=== PATIENT | female | born 1990 | race Caucasian/White ===

== ENCOUNTER → 2017-07-01 14:13 | Outpatient (CLI) | payer BC, SELFPAY ==
[2017-07-01 16:13] LABS: Glucose Challenge Gest 1H 50g 103 mg/dL (70-140)
[2017-07-01 16:17] LABS: Hematocrit 33.9 % (37-47); Hemoglobin 11.2 g/dl (12.0-15.0); Mean Corpuscular Hgb 28.8 pg (27.0-32.0); Mean Corpuscular Volume 87.1 fL (81-99); Mean Platelet Vol. 10.5 fl (6.2-12.0); Platelet Count 346 K/mm3 (150-450); RBC Distribution Width CV 13.5 % (11.6-14.6); RBC Distribution Width SD 43.2 fl (35.1-43.9); Red Blood Count 3.89 M/mm3 (4.2-5.4); White Blood Count 8.9 K/mm3 (4.4-11.0)
[2017-07-01 16:23] LABS: Scan Indicated on CBC? Y/N NO
== END ==
PROVIDERS: Visit Provider Obstetrics & Gynecology
DX: Z34.83 Encounter for supervision of other normal pregnancy, third trimester (principal)
CPT/HCPCS: 36415; 82950; 85027

== ENCOUNTER → 2017-08-16 17:02 | Outpatient (CLI) | payer BC, SELFPAY | PROVIDERS: Visit Provider Obstetrics & Gynecology | DX: Z34.93 Encounter for supervision of normal pregnancy, unspecified, third trimester (principal) | CPT/HCPCS: 87086; 87088 ==

== ENCOUNTER → 2017-08-30 16:00 | Outpatient (CLI) | payer BC, SELFPAY ==
--- NOTE | 2017-08-30 16:00 | DT_ITS ---
This patient was seen during an EMR downtime August 29, 2017 - September 05, 2017. This patient may have a combination of paper and electronic documentation or all paper documentation. All documentation is viewable within the e-chart portion of [employer] for each patient visit.
[2017-09-04 10:03] LABS: Group B Strep DNA By PCR Negative (Negative); Internal Control PASS; Probe Check PASS; Specimen Processing Control PASS
== END ==
PROVIDERS: Visit Provider Obstetrics & Gynecology
DX: Z34.90 Encounter for supervision of normal pregnancy, unspecified, unspecified trimester (principal)
CPT/HCPCS: 87081; 87653

== ENCOUNTER 2017-09-09 13:00 | Outpatient (CLI) | payer BC, SELFPAY ==
[2017-09-09 14:25] VITALS: BMI 28.4
--- NOTE | 2017-09-10 03:00 | OB.TRI.NOTE ---
History of Present Illness Date of Service: 09/09/17 Reason For Visit: R/O LABOR Date of Service: 09/09/17 History of Present Illness: presetns for contractions 4 cm in office Allergies No Known Allergies Allergy (Verified 09/09/17 10:30) - Pertinent Past Medical History Medical History: Past Medical History (Last Reviewed 09/09/17 @ 10:30 by Alexus Jane) Anxiety and depression Surgical History: Past Surgical History (Last Reviewed 09/09/17 @ 10:31 by Alexus Jane) History of wisdom tooth extraction, class II edentulism NST - FHR Rate Baby A Baseline: 140 Variability:: Moderate Accelerations:: 15 x 15 Decelerations:: None NST Reactive:: Yes FHR Category:: Category I Uterine Activity:: q3-6 Impression/Plan false labor no cervical change dc home
== END 2017-09-09 15:54 | disposition home or self-care (01) ==
LOC: WPOUT 13:27 → WP 13:27
PROVIDERS: Visit Provider Obstetrics & Gynecology
DX: O47.9 False labor, unspecified (principal); Z3A.00 Weeks of gestation of pregnancy not specified
CPT/HCPCS: 59025; 59050; 99218; G0378

== ENCOUNTER 2017-09-10 13:17 | Outpatient (CLI) | payer BC, SELFPAY ==
[2017-09-10 15:24] VITALS: BMI 29.7
[2017-09-10 16:10] LABS: ROM Internal Control Test YES-OK TO RESULT pt. (Internal QC); ROM Patient Test Negative (Negative)
--- NOTE | 2017-09-10 16:29 | NURSING ---
[id number] Dr balbuena notified rom plus negative. discharge order received
--- NOTE | 2017-09-10 18:15 | OB.TRI.NOTE ---
- Problem List (1) False labor Status: Acute History of Present Illness Date of Service: 09/10/17 Was patient seen by the physician?: No Reason For Visit: R/O ROM Date of Service: 09/10/17 History of Present Illness: co ctx and increased discharge Allergies No Known Allergies Allergy (Verified 09/09/17 10:30) - Pertinent Past Medical History Medical History: Past Medical History (Last Reviewed 09/09/17 @ 10:30 by Alexus Jane) Anxiety and depression Surgical History: Past Surgical History (Last Reviewed 09/09/17 @ 10:31 by Alexus Jane) History of wisdom tooth extraction, class II edentulism NST - FHR Rate Baby A Baseline: 120-130 Variability:: Moderate Accelerations:: 15 x 15 Decelerations:: None NST Reactive:: Yes FHR Category:: Category I Uterine Activity:: q4-10 Impression/Plan false labor reactive nst dc home labor precautions
== END 2017-09-10 16:50 | disposition home or self-care (01) ==
LOC: WPOUT 13:19 → WP 15:30
PROVIDERS: Visit Provider Obstetrics & Gynecology
DX: O47.9 False labor, unspecified (principal); Z3A.00 Weeks of gestation of pregnancy not specified
CPT/HCPCS: 59025; 59050; 84112; 99218; G0378

== ENCOUNTER 2017-09-10 23:00 | Inpatient (IN) | payer BC, SELFPAY ==
[2017-09-10] MEDS: Lactated Ringers 1,000 ML 15 ML IV (23:45)
[2017-09-11] VITALS (7 sets, daily range): BP systolic 88–115; BP diastolic 46–78; PULSE 68–80; RESP 16–17; TEMP 35.9–36.8; O2SAT 96–100; BMI 28.8
--- NOTE | 2017-09-11 00:06 | PCM.HP.OB ---
- Problem List (1) Active labor at term Status: Acute History Date of Admission: 09/11/17 Final STEVE: 09/23/17 Gestational age: 38 Weeks and 2 Days History of this : This is a 27 year-old, G 3, P 2, at 39 weeks gestational age. presents IAL and delivers precipitously Medical History: Medical History (Last Reviewed 09/09/17 @ 10:30 by Alexus Jane) Anxiety and depression F41.9, F32.9 Surgical History: Surgical History (Last Reviewed 09/09/17 @ 10:31 by Alexus Jane) History of wisdom tooth extraction, class II edentulism K08.492 Allergies No Known Allergies Allergy (Verified 09/09/17 10:30) Home Medications: Home Medications docusate sodium 50 mg capsule 50 mg PO QDAY 07/20/17 ferrous sulfate 324 mg (65 mg iron) tablet,delayed release 324 mg PO QDAY tab 07/20/17 vitamin,calcium,gjasmxym-ergt-khkuy acid tablet 1 tab PO QDAY 07/20/17 citalopram 20 mg tablet 20 mg PO DAILY #30 tab 07/22/17 Smoking Status: Current every day smoker Alcohol: None Number of Fetus(es): 1 Heart Tracin moderate variability reactive mild variable decels category II History Past Pregnancies: Pregancy History 3 Elective abortions Hx Para 2 Spontaneous abortions Hx # Term Pregnancies Ectopic pregnancies Hx # Pregnancies Multiple births # of living children Past Pregnancies Del. Date Name GA/Weeks Outcome Route Bth Weight Infant Gen Labor Lgth Anesthesia Del Locatn Provider FOB Unknown 2012 Anna live - full term Unknown 2015 Devendra live - full term OB Visit STEVE Calculator Estimated Delivery Date 09/23/17 Based on LMP (certain) 12/17/16 Current WG 34w 4d Number 1 Expected Delivery Route/Plan Specific Issue/Plans flu vaccine: declined minichart given: na tdap vaccine: declined rhogam: no LARC form signed: yes declined labor support person: yonny pain management: epidural cut cord/dad catch: probably : yes hopefully PP control planned: PP tubal ligation special requests: none Labs: Social History Alleged father yonny Hx Smoking Yes Smoking Status Current every day smoker Describe any other labor & delivery plans:: Expected Delivery Route/Plan. . Specific Issue/Plans. flu vaccine: declined. minichart given: na. tdap vaccine: declined. rhogam: no. LARC form signed: yes declined. labor support person: yonny. pain management: epidural. cut cord/dad catch: probably. : yes hopefully. PP control planned: PP tubal ligation. special requests: none Review of Systems Constitutional: Denies: Fever, Malaise Eyes: Denies: Blurred vision, Vision Change HEENT: Denies: Head Aches, Visual Changes Cardiovascular: Denies: Chest Pain, Palpitations Respiratory: Denies: Cough, Shortness of Breath, Wheezing Gastrointestinal: Reports: Abdominal Pain. Denies: Diarrhea, Nausea, Vomiting Genitourinary: Denies: Dysuria, Hematuria Gynecological: Reports: Vaginal bleeding, Vaginal discharge Musculoskeletal: Denies: Joint Pain, Muscle pain Skin: Denies: Lesions, Rash Neurological: Denies: Blurred vision, Focal weakness, Headaches Psychiatric: Denies: Anxiety, Depression Endocrine: Denies: Heat/ Cold Intolerance Hematologic/ Lymphatic: Denies: Easy Bruising, Easy Bleeding Physical Exam General: Alert, Cooperative, No apparent distress HEENT: Atraumatic, Normocephalic. 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 Negative for: Vulvar lesions Estimated gestational size: Appropriate for gestational size Presentation: Cephalic Cervix Dilation (cm): 6 Assessment/Plan All Active Problems (Last Reviewed 09/09/17 @ 10:30 by Alexus Jane) False labor (Acute) Active labor at term (Acute) Heavy menses (Acute) Contraceptive management (Acute) Supervision of normal in third trimester (Acute) This is a 27 year-old, G 3 P 2, at 38weeks gestational age IAL admit IAL precipitous delivery
[2017-09-11] MEDS: Morphine 4 MG/ML Syringe IV (00:15)
[2017-09-11] MEDS: Oxytocin 30 units/NS 500 ml 30 UNITS/500 ML IV.SOLN 334 UNITS IV (00:15)
--- NOTE | 2017-09-11 00:18 | HP.PCM_ITS ---
- Problem List (1) Active labor at term Status: Acute History Date of Admission: 09/11/17 Final STEVE: 09/23/17 Gestational age: 38 Weeks and 2 Days History of this : This is a 27 year-old, G 3, P 2, at 39 weeks gestational age. presents IAL and delivers precipitously Medical History: Medical History (Last Reviewed 09/09/17 @ 10:30 by Alexus Jane) Anxiety and depression F41.9, F32.9 Surgical History: Surgical History (Last Reviewed 09/09/17 @ 10:31 by Alexus Jane) History of wisdom tooth extraction, class II edentulism K08.492 Allergies No Known Allergies Allergy (Verified 09/09/17 10:30) Home Medications: Home Medications docusate sodium 50 mg capsule 50 mg PO QDAY 07/20/17 ferrous sulfate 324 mg (65 mg iron) tablet,delayed release 324 mg PO QDAY tab 07/20/17 vitamin,calcium,uwzvprek-falm-iwlel acid tablet 1 tab PO QDAY 07/20/17 citalopram 20 mg tablet 20 mg PO DAILY #30 tab 07/22/17 Smoking Status: Current every day smoker Alcohol: None Number of Fetus(es): 1 Heart Tracin moderate variability reactive mild variable decels category II History Past Pregnancies: Pregancy History 2 3 Elective abortions Hx Para 2 Spontaneous abortions Hx # Term Pregnancies Ectopic pregnancies Hx # Pregnancies Multiple births # of living children Past Pregnancies Del. Date Name GA/Weeks Outcome Route Bth Weight Infant Gen Labor Lgth Anesthesia Del Locatn Provider FOB Unknown 2012 Anna live - full term Unknown 2015 Devendra live - full term OB Visit STEVE Calculator 2 Estimated Delivery Date 09/23/17 Based on LMP (certain) 12/17/16 Current WG 34w 4d Number 1 Expected Delivery Route/Plan Specific Issue/Plans flu vaccine: declined minichart given: na tdap vaccine: declined rhogam: no LARC form signed: yes declined labor support person: yonny pain management: epidural cut cord/dad catch: probably : yes hopefully PP control planned: PP tubal ligation special requests: none Labs: Social History Alleged father yonny Hx Smoking Yes Smoking Status Current every day smoker Describe any other labor & delivery plans:: Expected Delivery Route/Plan. . Specific Issue/Plans. flu vaccine: declined. minichart given: na. tdap vaccine: declined. rhogam: no. LARC form signed: yes declined. labor support person: yonny. pain management: epidural. cut cord/dad catch: probably. : yes hopefully. PP control planned: PP tubal ligation. special requests: none Review of Systems Constitutional: Denies: Fever, Malaise Eyes: Denies: Blurred vision, Vision Change HEENT: Denies: Head Aches, Visual Changes Cardiovascular: Denies: Chest Pain, Palpitations Respiratory: Denies: Cough, Shortness of Breath, Wheezing Gastrointestinal: Reports: Abdominal Pain. Denies: Diarrhea, Nausea, Vomiting Genitourinary: Denies: Dysuria, Hematuria Gynecological: Reports: Vaginal bleeding, Vaginal discharge Musculoskeletal: Denies: Joint Pain, Muscle pain Skin: Denies: Lesions, Rash Neurological: Denies: Blurred vision, Focal weakness, Headaches Psychiatric: Denies: Anxiety, Depression Endocrine: Denies: Heat/ Cold Intolerance Hematologic/ Lymphatic: Denies: Easy Bruising, Easy Bleeding Physical Exam General: Alert, Cooperative, No apparent distress HEENT: Atraumatic, Normocephalic. 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 Negative for: Vulvar lesions Estimated gestational size: Appropriate for gestational size Presentation: Cephalic Cervix Dilation (cm): 6 Assessment/Plan All Active Problems (Last Reviewed 09/09/17 @ 10:30 by Alexus Jane) False labor (Acute) Active labor at term (Acute) Heavy menses (Acute) Contraceptive management (Acute) Supervision of normal in third trimester (Acute) This is a 27 year-old, G 3 P 2, at 38weeks gestational age IAL admit IAL precipitous delivery
--- NOTE | 2017-09-11 00:22 | PCM.OB.VAG ---
- Problem List (1) Active labor at term Status: Acute Vaginal Delivery Maternal Presentation: Active Labor precipitous delivery Amniotic Membrane Rupture Type: Spontaneous Amniotic Fluid Description: Clear Final STEVE: 09/23/17 Gestational age: 38 Weeks and 2 Days Date of Procedure: 09/11/17 Pre-Operative Diagnosis: ial Post-Operative Diagnosis: same Surgery/ Procedure Performed: Spontaneous Vaginal Delivery Type of Anesthesia: None Description of Procedure: delivered MARIE spontaneously with delayed cord clamping no complications, no lacerations and placenta delivered spontaneously immediately following Presentation: MARIE Placental Delivery Description: Spontaneous Placenta Disposition: [facility] Cord Entanglement: None Estimated Blood Loss: 100 A gender: Male Episiotomy Description: None Laceration: None Medications given after delivery: IV Pitocin Complications: None
[2017-09-11 00:37] LABS: Hematocrit 35.5 % (37-47); Hemoglobin 11.9 g/dl (12.0-15.0); Mean Corp Hgb Conc 33.5 g/gl (32-36); Mean Corpuscular Hgb 28.7 pg (27.0-32.0); Mean Corpuscular Volume 85.5 fL (81-99); Mean Platelet Vol. 10.9 fl (6.2-12.0); Platelet Count 339 K/mm3 (150-450); RBC Distribution Width CV 13.8 % (11.6-14.6); RBC Distribution Width SD 42.5 fl (35.1-43.9); Red Blood Count 4.15 M/mm3 (4.2-5.4); White Blood Count 11.8 K/mm3 (4.4-11.0)
[2017-09-11] MEDS: Oxytocin 30 units/NS 500 ml 30 UNITS/500 ML IV.SOLN 167 UNITS IV (00:45)
[2017-09-11 00:49] LABS: Scan Indicated on CBC? Y/N NO
[2017-09-11] MEDS: Naproxen 250 MG Tablet PO ×2 (02:13→15:48)
[2017-09-11] MEDS: Acetaminophen 500 MG Tablet 1000 MG PO ×2 (08:13→17:50)
[2017-09-11] MEDS: Ferrous Sulfate 325 MG Tablet PO (08:13)
--- NOTE | 2017-09-11 12:57 | PCM.PN.OB ---
Patient Problems: Active and Suspected Problems (Last Reviewed 09/09/17 @ 10:30 by Alexus Jane) Active labor at term (Acute) Subjective: doing well no complaints, wants to go home first thing tomorrow - Physical Exam General: Alert, Oriented x3 Vital Signs Temp Pulse Resp BP Pulse Ox 97.3 F L 69 16 93/46 L 96 09/11/17 12:25 09/11/17 12:25 09/11/17 12:25 09/11/17 12:25 09/11/17 12:25 Oxygen Delivery Method Room Air Weight: 168 lb Body Mass Index (BMI) 28.8 Intake and Output for Last 24 Hours 09/09/17 09/10/17 09/11/17 23:59 23:59 23:59 Intake Total 1000 / 1000 Output Total 600 / 600 Balance 400 / 400 Laboratory Tests Past 24 Hrs 09/10/17 09/10/17 23:45 23:45 WBC 11.8 H RBC 4.15 L Hgb 11.9 L Hct 35.5 L MCV 85.5 MCH 28.7 MCHC 33.5 RDW 13.8 RDW Differential 42.5 Plt Count 339 MPV 10.9 Blood Type A POSITIVE Antibody Screen NEGATIVE Medical Necessity - Tobacco Use Smoking Status: Light Smoker (<10/day) Assessment/Plan All Active Problems (Last Reviewed 09/09/17 @ 10:30 by Alexus Jane) False labor (Acute) Active labor at term (Acute) Heavy menses (Acute) Contraceptive management (Acute) Supervision of normal in third trimester (Acute) s/p routine care doing well dc home tomorrow
--- NOTE | 2017-09-11 12:57 | PCM.DCVAG ---
Discharge Diet: No Restrictions Discharge Activity: Return to Normal Activity, May not drive while taking narcotic pain medications., May Shower May resume sexual activity in: 4-6 weeks Call your doctor if your incision/area has: Continuous Slow Oozing, Sudden Increased Bleeding, Increased Pain/ Swelling, Increased Redness, Foul Smelling Discharge Additional Instructions: If you experience any of the following, contact your healthcare provider. Bleeding that soaks a pad every hour for 2 hours Fever 100.4 or higher Unrelieved incision or abdominal pain Swelling, redness, discharge or bleeding from your incision or episiotomy site Your incision begins to separate Problems urinating (including inability to urinate or burning while urinating). Visual changes Severe headache Flu-like symptoms Pain or redness in one of both of your breasts Pain, warmth, tenderness or swelling in your legs, especially the calf area Frequent nausea and vomiting Symptoms of depression or anxiety If you experience any of the following, call 911 or go to the nearest Emergency Room. Chest pain Problems breathing Seizure activity Partial or complete paralysis of a body part, slurred speech, weakness or drooping of the face, or a sudden inability to walk or hold your balance Allergies/Adverse Reactions: Allergies No Known Allergies Allergy (Verified 09/09/17 10:30) Medications to take at Discharge docusate sodium 50 mg capsule 50 mg PO QDAY 07/20/17 ferrous sulfate 324 mg (65 mg iron) tablet,delayed release 324 mg PO QDAY tab 07/20/17 vitamin,calcium,fvcvdslk-ihji-pltqw acid tablet 1 tab PO QDAY 07/20/17 citalopram 20 mg tablet 20 mg PO DAILY #30 tab 07/22/17 Please Follow Up With: Bobbi Bah MD - [phone] When: Call to make an appointment with your doctor in 6 weeks. If you had elevated Blood pressure or 4th degree laceration you will need to be seen in 2 weeks. Primary Care Physician: Care Physician,No Primary [Primary Care Provider] -
--- NOTE | 2017-09-11 12:58 | DCINST_ITS ---
Discharge Diet: No Restrictions Discharge Activity: Return to Normal Activity, May not drive while taking narcotic pain medications., May Shower May resume sexual activity in: 4-6 weeks Call your doctor if your incision/area has: Continuous Slow Oozing, Sudden Increased Bleeding, Increased Pain/ Swelling, Increased Redness, Foul Smelling Discharge Additional Instructions: If you experience any of the following, contact your healthcare provider. * Bleeding that soaks a pad every hour for 2 hours * Fever 100.4 or higher * Unrelieved incision or abdominal pain * Swelling, redness, discharge or bleeding from your incision or episiotomy site * Your incision begins to separate * Problems urinating (including inability to urinate or burning while urinating) . * Visual changes * Severe headache * Flu-like symptoms * Pain or redness in one of both of your breasts * Pain, warmth, tenderness or swelling in your legs, especially the calf area * Frequent nausea and vomiting * Symptoms of depression or anxiety If you experience any of the following, call 911 or go to the nearest Emergency Room. * Chest pain * Problems breathing * Seizure activity * Partial or complete paralysis of a body part, slurred speech, weakness or drooping of the face, or a sudden inability to walk or hold your balance Allergies/Adverse Reactions: Allergies No Known Allergies Allergy (Verified 09/09/17 10:30) Medications to take at Discharge docusate sodium 50 mg capsule 50 mg PO QDAY 07/20/17 ferrous sulfate 324 mg (65 mg iron) tablet,delayed release 324 mg PO QDAY tab 07/20/17 vitamin,calcium,ywpmafxh-aoll-fbynj acid tablet 1 tab PO QDAY 07/20/17 citalopram 20 mg tablet 20 mg PO DAILY #30 tab 07/22/17 Please Follow Up With: Bobbi Bah MD - [phone] When: Call to make an appointment with your doctor in 6 weeks. If you had elevated Blood pressure or 4th degree laceration you will need to be seen in 2 weeks. Primary Care Physician: Care Physician,No Primary [Primary Care Provider] -
[2017-09-11] MEDS: Senna/Docusate Sodium 1 Tablet PO (17:51)
[2017-09-11] MEDS: Citalopram 20 MG Tablet PO (21:32)
[2017-09-11] MEDS: Prenatal Vits Tablet 1 TABLET PO (21:32)
[2017-09-12 03:15] VITALS: BP 113/50; PULSE 73; RESP 17; TEMP 36.5
[2017-09-12 08:20] VITALS: BP 106/51; PULSE 79; RESP 20; TEMP 36.5; O2SAT 95
[2017-09-12] MEDS: Ferrous Sulfate 325 MG Tablet PO (08:25)
--- NOTE | 2017-09-12 09:43 | PCM.PN.OB ---
Patient Problems: Active and Suspected Problems (Last Reviewed 09/09/17 @ 10:30 by Alexus Jane) Active labor at term (Acute) Subjective: doing well no complaints - Physical Exam General: Alert, Oriented x3 Vital Signs Temp Pulse Resp BP Pulse Ox 97.7 F L 79 20 H 106/51 L 95 09/12/17 08:20 09/12/17 08:20 09/12/17 08:20 09/12/17 08:20 09/12/17 08:20 Oxygen Delivery Method Room Air Weight: 168 lb Body Mass Index (BMI) 28.8 Intake and Output for Last 24 Hours 09/10/17 09/11/17 09/12/17 23:59 23:59 23:59 Intake Total 1000 / 1000 Output Total 600 / 600 Balance 400 / 400 Medical Necessity - Tobacco Use Smoking Status: Light Smoker (<10/day) Assessment/Plan All Active Problems (Last Reviewed 09/09/17 @ 10:30 by Alexus Jane) False labor (Acute) Active labor at term (Acute) Heavy menses (Acute) Contraceptive management (Acute) Supervision of normal in third trimester (Acute) s/p routine care doing well dc home today
== END 2017-09-12 09:15 | disposition home or self-care (01) | DRG 775 ==
PROVIDERS: Admitting Provider Obstetrics & Gynecology; Visit Provider Obstetrics & Gynecology
DX: O62.3 Precipitate labor (principal); Z37.0 Single live birth; O99.333 Smoking (tobacco) complicating pregnancy, third trimester; Z3A.38 38 weeks gestation of pregnancy
CPT/HCPCS: 59025; 59050; 85027; 86850; 86900; 99218; J7120; G0378

== ENCOUNTER → 2017-10-24 14:50 | Outpatient (CLI) | payer BC, SELFPAY ==
[2017-10-29 13:19] LABS: HPV Reflexed? NOT INDICATED
== END ==
PROVIDERS: Visit Provider Nurse Practitioner Women's Health
DX: Z12.4 Encounter for screening for malignant neoplasm of cervix (principal)
CPT/HCPCS: 88175; G0145

== ENCOUNTER 2017-11-02 11:26 | Day surgery (SDC) | payer SELFPAY ==
[2017-11-02] VITALS (7 sets, daily range): BP systolic 103–122; BP diastolic 66–81; PULSE 60–84; RESP 14–18; TEMP 36.2–36.9; O2SAT 97–100; BMI 25.4
[2017-11-02 11:46] LABS: Internal QC Validated? YES +Cl - CLEAR BKGD
[2017-11-02 11:51] LABS: Pregnancy, Urine Negative Negative
[2017-11-02 12:08] LABS: Absolute Lymphocyte Count 2.51 X10^3/ul (0.83-4.51); Absolute Neutrophil Count 2.1 X10^3/uL (2.0-7.7); Basophil# 0.06 X10^3/uL; Basophil% 1.1 % (0-1); Eosinophil# 0.44 X10^3/uL; Hematocrit 40.9 % (37-47); Hemoglobin 13.2 g/dl (12.0-15.0); Lymphocyte # 2.51 X10^3/ul (4.0); Lymphocyte % 45.8 % (19-41); Mean Corp Hgb Conc 32.3 g/gl (32-36); Mean Corpuscular Hgb 28.1 pg (27.0-32.0); Mean Platelet Vol. 10.3 fl (6.2-12.0); Monocyte% 7.3 % (0-10); Neutrophil # 2.07 X10^3/uL (2.7-7.7); Neutrophil % 37.8 % (47-70); POSITIVE COUNT NO; POSITIVE DIFFERENTIAL NO; POSITIVE MORPHOLOGY NO; Platelet Count 313 K/mm3 (150-450); RBC Distribution Width CV 14.1 % (11.6-14.6); RBC Distribution Width SD 44.8 fl (35.1-43.9); White Blood Count 5.5 K/mm3 (4.4-11.0)
--- NOTE | 2017-11-02 13:00 | FALS_PTH ---
PATIENT: DAMIÁN SANCHEZ [place] [facility] [place][id number] AGE/SX: 27/F ROOM: RE11/02/[address]: Dr. Bobbi Bah MD : 1990 BED: DIS: 11/02/2017 SPEC #: [id number] RECD: 11/02/17 15:17 STATUS: ROSA GOVIND #: [id number] ALEKSANDRA: 11/02/17 13:[address]: Bobbi Bah DEPT: SURGICAL PATHOLOGY RECD BY: Nathan Payan ENTERED: 11/03/17 10:17 SP TYPE: FALL TUBES OTHR DR: No Primary Care Phys Tissues: Fallopian tube Procedures: Surgery Specimen Level II HEADER OPERATION: Laparoscopic salpingectomy, bilateral PRE-OP DIAGNOSIS: Sterilization request TISSUE SUBMITTED: Bilateral fallopian tubes MICROSCOPIC DIAGNOSIS Bilateral fallopian tubes, salpingectomy: Bilateral fallopian tubes including fimbrial ends, no pathologic diagnosis. MINERVA:dee 8/10/18 MICROSCOPIC DESCRIPTION Slides are reviewed. GROSS DESCRIPTION Received is one container labeled with the patient's name and designated bilateral fallopian tubes. The specimen consists of bilateral fallopian tubes including fimbrial ends. The fallopian tubes are not identified as right or left. One of the fallopian tubes measure 6 cm in length and up to 0.6 cm in diameter. The second fallopian tube measures 8 cm in length and up to 0.5 cm in diameter. Sections reveal unremarkable cut surfaces. Fountain Brush Assembler sections are submitted in two cassettes with each cassette containing one fallopian tube. / MINERVA:dee 11/03/17 TC:4 CPT: 32526 x2
[2017-11-02] MEDS: Bupivacaine 0.5% PF 10 ML VIAL (14:08)
--- NOTE | 2017-11-02 14:16 | DCINST_ITS ---
Discharge Diet: No Restrictions - Increase fluid intake for the next 48 hours. Discharge Activity: Return to Normal Activity, May Drive - when you are no longer taking narcotic pain medications., May Shower, May Take a Tub Bath - in 7 days Additional Activity Instructions:: Ambulate often the next week after surgery. Nothing in the vagina for 5 days. Call your doctor if your incision/area has: Continuous Slow Oozing, Sudden Increased Bleeding, Increased Pain/ Swelling, Increased Redness, Foul Smelling Discharge Call your doctor if you observe: Fever of 101 or Higher Allergies/Adverse Reactions: Allergies No Known Allergies Allergy (Verified 10/26/17 09:55) Medications to take at Discharge citalopram 20 mg tablet 20 mg PO DAILY #30 tab 07/22/17 Ibuprofen [Motrin] 600 mg PO Q6H PRN PRN #30 tab 11/02/17 Oxycodone HCl/Acetaminophen [Percocet 5-325] 1 - 2 tablet PO Q4H PRN PRN 7 Days #15 tablet 11/02/17 The following prescriptions were given: Oxycodone HCl/Acetaminophen [Percocet 5-325] 1 - 2 tablet PO Q4H PRN PRN 7 Days #15 tablet PRN Reason: Pain Ibuprofen [Motrin] 600 mg PO Q6H PRN PRN #30 tab PRN Reason: Pain Primary Care Physician: Care Physician,No Primary [Primary Care Provider] - Test Results: Test results from this visit will be discussed in further detail at your follow- up appointment, if applicable. Please Follow Up With: Bobbi Bah MD - [phone]
[2017-11-02] MEDS: HYDROcodone Bitartrate/Apap 5/325 Tablet PO (15:08)
--- NOTE | 2017-11-02 15:24 | PCM.OPRPT ---
Problem List (1) Sterilization Status: Acute Report of Operation Date of Procedure: 11/02/17 Pre-Operative Diagnosis: sterilization Post-Operative Diagnosis: same Surgery/Procedure Performed:: laparoscopic bilateral salpingectomy Description of Surgical Findings:: normal uterus tubes ovaries Type of Anesthesia:: General Special Medications: megan Specimen's removed: tubes Drains: none Estimated Blood Loss (mL): 50 Fluids Replaced: crystalloid Description of Procedure: Patient was taken in the operating room and was placed under general anesthesia was prepped and draped in normal sterile fashion in the dorsal lithotomy position. Bladder was drained of clear urine and SCDs were on preoperatively. Uterus was sounded and a uterine manipulator was placed after dilating. Attention was then paid to the abdominal portion of the procedure and the umbilicus was elevated with towel clamps and injected with Marcaine and after a 5 mm incision was made and the Veress needle was entered into the abdomen confirmed to be intra-abdominal with a low opening pressure of less than 5 mmHg. Abdomen was insufflated with CO2 gas and a 5 mm optical trocar was placed under direct visualization. A left lower quadrant 5 mm port and a 5 mm port suprapubically replaced under direct visualization. Uterus was well visualized and bilateral fallopian tubes identified and bilateral tubes were elevated and transecting across the mesosalpinx and the attachment to the uterine corpus bilaterally the tubes were removed without complication. Excellent hemostasis was noted after a kleppingers was used in the right adnexa. a small posterior uterine perforation was noted and spontaneously hemostatic. megan applied to entire pelvis and good hemostasis seen. Fallopian tubes were removed through the lower port sites without complication. Liver and upper abdomen were visualized notably within normal limits and no other gross abnormalities were seen in the abdomen. All instruments removed from the abdomen after gas was desufflated. Port sites were closed with 3-0 Monocryl Steri's and op sites were applied. All instruments removed from the vagina and patient was awoken and taken recovery in stable condition. Grafts/Implants Used: none - Complications none - Admit VTE Documentation VTE Present on Admission: No
== END 2017-11-02 16:38 | disposition home or self-care (01) ==
LOC: SDC 11:27 → AC 11:31
PROVIDERS: Visit Provider Obstetrics & Gynecology
PROC: (CPT 58661; principal; 2017-11-02 12:45)
DX: Z30.2 Encounter for sterilization (principal); F17.200 Nicotine dependence, unspecified, uncomplicated
CPT/HCPCS: 00840; 58661; 81025; 85025; 86850; 86900; 88302; J7120; J2405